=== PATIENT | female | born 1955 | race Caucasian/White ===

== ENCOUNTER → 2016-09-05 | Outpatient (CLI) | payer BC ==
[2016-09-05 16:43] LABS: CHLORIDE,CL 110 mmol/L (98-110); SODIUM,NA 142 mmol/L (136-146)
== END ==
LOC: MW.CHFP 15:36
PROVIDERS: ATTEND Nurse Practitioner Family
DX: Z00.00 Encounter for general adult medical examination without abnormal findings (principal); E03.9 Hypothyroidism, unspecified
CPT/HCPCS: 36415; 80053; 80061; 84443

== ENCOUNTER → 2016-09-06 | Outpatient (CLI) | payer BC ==
--- NOTE | 2016-09-06 16:58 | MY ---
EXAMINATION: Bilateral digital mammography utilizing CAD. HISTORY: Screening exam. Comparison is made to previous studies dated 08/18/2015, 08/17/2014, 07/30/19 14, 07/23/2012. FINDINGS: Bilateral heterogeneously dense breast tissue. No suspicious calcifications, masses or architectural distortions. No pathologic appearing lymph nodes, no abnormal skin thickening or nipple inversion. CAD highlighted regions appear normal at this time. IMPRESSION: BI-RADS category I - negative mammogram. Continued screening according to ACR-ACS guidelines britany soares. THE FALSE-NEGATIVE RATE OF MAMMOGRAM IS APPROXIMATELY 10%. MANAGEMENT OF A PALPABLE ABNORMALITY MUST BE BASED UPON CLINICAL GROUNDS. SENSITIVITY FOR DETECTION OF ABNORMALITIES IN DENSE BREASTS IS LOW. NOTE: A letter will be sent to the patient regarding findings. [facility] -- KRISTY Wagner [phone] - FAX [phone]
== END ==
LOC: MW.MAM 13:45
PROVIDERS: ATTEND Nurse Practitioner Family
DX: Z12.31 Encounter for screening mammogram for malignant neoplasm of breast (principal)
CPT/HCPCS: G0202; G0202-26

== ENCOUNTER 2017-05-12 07:04 | Emergency (ER) | payer BC ==
--- NOTE | 2017-05-12 07:27 | EDM.PDOC ---
ED HPI GENERAL MEDICAL PROBLEM - General Chief Complaint: Lower Extremity Injury/Pain Stated Complaint: RIGHT FOOT PAIN Time Seen by Provider: 05/12/17 07:26 Source of Information: Reports: Patient - History of Present Illness INITIAL COMMENTS - FREE TEXT/NARRATIVE: HISTORY AND PHYSICAL: History of present illness: [Patient presents with 6 out of 10 worst foot pain on the right which began insidiously increasing in severity denies injury or trauma painful even with the bed sheet over the foot clinically SEEMS similar to get out of her uric acid is normal there is a mild swelling over the dorsum of her foot but no redness No fever nausea vomiting chills sweats no history of gout or prior joint involvement ] Review of systems: As per history of present illness and below otherwise all systems reviewed and negative. Past medical history: As per history of present illness and as reviewed below otherwise noncontributory. Surgical history: As per history of present illness and as reviewed below otherwise noncontributory. Social history: No reported history of drug or alcohol abuse. Family history: As per history of present illness and as reviewed below otherwise noncontributory. Physical exam: HEENT: Atraumatic, normocephalic, pupils reactive, negative for conjunctival pallor or scleral icterus, mucous membranes moist, throat clear, neck supple, nontender, trachea midline. Lungs: Clear to auscultation, breath sounds equal bilaterally, chest nontender. Heart: S1S2, regular, negative for clicks, rubs, or JVD. Abdomen: Soft, nondistended, nontender. Negative for masses or hepatosplenomegaly. Negative for costovertebral tenderness. Pelvis: Stable nontender. Genitourinary: Deferred. Rectal: Deferred. Extremities: Atraumatic, negative for cords or calf pain. Neurovascular unremarkable. Neuro: Awake, alert, oriented. Cranial nerves II through XII unremarkable. Cerebellum unremarkable. Motor and sensory unremarkable throughout. Exam nonfocal. Right foot unaffected above the ankle otherwise as per history of present illness and neurovascularly intact no open lesion or bruising Diagnostics: []Right foot 3 views CBC uric acid Therapeutics: []Indomethacin 50 mg by mouth 3 times a day #30 no refill Cam boot crutches nonweightbearing Follow-up with podiatry Impression: right oot pain The question a nondisplaced fracture at the proximal metatarsal of the third metatarsal, radiology has read the film was normal which is very subtle may as well be normal but I would clinically correlate to see this only on the oblique view. This patient may cam boot crutches well her follow-up with podiatry for repeat exam and consideration of CT/MRI to rule out occult fracture ending their evaluation Definitive disposition and diagnosis as appropriate pending reevaluation and review of above. right foot Pain Score (Numeric/FACES): 7 - Related Data Allergies Allergy/AdvReac Type Severity Reaction Status Date / Time aspirin Allergy Cannot Verified 05/12/17 07:21 Remember cephalexin [From Keflex] Allergy Cannot Verified 05/12/17 07:21 Remember ciprofloxacin [From Cipro] Allergy Cannot Verified 05/12/17 07:21 Remember clarithromycin [From Biaxin] Allergy Cannot Verified 05/12/17 07:21 Remember ibuprofen [From Motrin] Allergy Cannot Verified 05/12/17 07:21 Remember naproxen [From Naprosyn] Allergy Cannot Verified 05/12/17 07:21 Remember nitrofurantoin Allergy Cannot Verified 05/12/17 07:21 [From Macrobid] Remember Home Meds: Home Meds Levothyroxine [Synthroid] 1 tab PO DAILY 05/12/17 [History] Past Medical History Musculoskeletal History: Reports: Osteoarthritis - Past Surgical History Musculoskeletal Surgical History: Reports: Other (See Below) Review of Systems - Review of Systems Review Of Systems: ROS reveals no pertinent complaints other than HPI. ED EXAM, GENERAL - Physical Exam Exam: See Below Course - Vital Signs Last Recorded V/S: Last Vital Signs Temp 97.0 F 05/12/17 07:22 Pulse 73 05/12/17 07:22 Resp 18 05/12/17 07:22 BP 190/87 H 05/12/17 07:22 Pulse Ox 99 05/12/17 07:22 - Orders/Labs/Meds Orders: Active Orders 24 hr Category Date Time Status Foot Comp Min 3V Rt [CR] Stat Exams 05/12/17 07:26 Taken Labs: Laboratory Tests 05/12/17 05/12/17 Range/Units 07:35 07:35 WBC 9.49 (4.0-11.0) K/uL RBC 4.33 (4.30-5.90) M/uL Hgb 13.2 (12.0-16.0) g/dL Hct 38.2 (36.0-46.0) % MCV 88.2 (80.0-98.0) fL MCH 30.5 (27.0-32.0) pg MCHC 34.6 (31.0-37.0) g/dL RDW Std Deviation 44.8 (28.0-62.0) fl RDW Coeff of Jerrell 14 (11.0-15.0) % Plt Count 213 (150-400) K/uL MPV 11.30 (7.40-12.00) fL Neut % (Auto) 34.5 L (48.0-80.0) % Lymph % (Auto) 47.4 H (16.0-40.0) % [place] % (Auto) 9.5 (0.0-15.0) % Eos % (Auto) 8.0 H (0.0-7.0) % Baso % (Auto) 0.6 (0.0-1.5) % Neut # (Auto) 3.3 (1.4-5.7) K/uL Lymph # (Auto) 4.5 H (0.6-2.4) K/uL [place] # (Auto) 0.9 H (0.0-0.8) K/uL Eos # (Auto) 0.8 H (0.0-0.7) K/uL Baso # (Auto) 0.1 (0.0-0.1) K/uL Nucleated RBC % 0.0 /100WBC Nucleated RBCs # 0 K/uL Uric Acid 4.1 (2.1-6.2) mg/dL Departure - Departure Time of Disposition: 08:45 Disposition: Home, Self-Care 01 Condition: Good Clinical Impression: Right foot pain - Discharge Information Referrals: Barbara Sun NP [Primary Care Provider] - Forms: ED Department Discharge Additional Instructions: Medication as prescribed Return if symptoms persist or worsen Follow-up with podiatry early next week called lumbar below for appointment Continue CAM boot crutches and nonweightbearing ice 20 minute intervals 3 times daily as needed No need for ibuprofen or Tylenol with the prescription medication [facility] Primary [facility] - Podiatry [address] [place] [id number] The following information is given to patients seen in the emergency department who are being discharged to home. This information is to outline your options for follow-up care. We provide all patients seen in our emergency department with a follow-up referral. The need for follow-up, as well as the timing and circumstances, are variable depending upon the specifics of your emergency department visit. If you don't have a primary care physician on staff, we will provide you with a referral. We always advise you to contact your personal physician following an emergency department visit to inform them of the circumstance of the visit and for follow-up with them and/or the need for any referrals to a consulting specialist. The emergency department will also refer you to a specialist when appropriate. This referral assures that you have the opportunity for follow-up care with a specialist. All of these measure are taken in an effort to provide you with optimal care, which includes your follow-up. Under all circumstances we always encourage you to contact your private physician who remains a resource for coordinating your care. When calling for follow-up care, please make the office aware that this follow-up is from your recent emergency room visit. If for any reason you are refused follow-up, please contact the [facility] emergency department at and asked to speak to the emergency department charge nurse. - My Orders Last 24 Hours: My Active Orders 05/12/17 07:26 Foot Comp Min 3V Rt [CR] Stat - Assessment/Plan Last 24 Hours: My Active Orders 05/12/17 07:26 Foot Comp Min 3V Rt [CR] Stat
--- NOTE | 2017-05-14 13:48 | CR ---
EXAM DATE: 05/12/17 PATIENT'S AGE: 61 Patient: KAMRYN SANABRIA Facility: [place], [place] Site . Site : 1955 Study: XRay Extremity Right foot [id number]/16/2017 7:43:33 AM Ordering Physician: Dong Escobar Final Report: Indication: Right foot pain. Technique: Three views of the right foot. Comparison: 01/23/2011. Findings: No fracture, periosteal reaction or erosive change. Mild hallux valgus deformity and 1st MTP joint osteoarthritis. Small posterior calcaneal spur and tiny plantar calcaneal spur. Impression: 1. No acute abnormality. 2. Mild hallux valgus deformity and 1st MTP joint osteoarthritis. 3. Small calcaneal spurs. Dictated by Yaya Vickers MD @ May 12 2017 8:26AM (Electronic Signature) Report Signed by Proxy. GHISLAINE
== END 2017-05-12 09:13 | disposition home or self-care (01) ==
LOC: MW.ED 07:04
DX: M79.671 Pain in right foot (principal); Z88.6 Allergy status to analgesic agent; Z88.1 Allergy status to other antibiotic agents; Z88.8 Allergy status to other drugs, medicaments and biological substances; Z79.899 Other long term (current) drug therapy
CPT/HCPCS: 36415; 73630-26-RT; 73630-RT; 84550; 85025; 99283

== ENCOUNTER 2020-08-15 15:56 | Emergency (ER) | payer MEDICARE, OTHER ==
[2020-08-15] MEDS ORDERED: Morphine 4 MG/ML Syringe IVPUSH ONE (16:26)
[2020-08-15] MEDS ORDERED: Sodium Chloride 0.9% 1,000 ML IV ONE (16:26)
--- NOTE | 2020-08-15 16:50 | EDM.PDOC ---
ED HPI GENERAL MEDICAL PROBLEM - General Chief Complaint: Abdominal Pain Stated Complaint: ABDMINAL PAIN Time Seen by Provider: 08/15/20 16:02 Source of Information: Reports: Patient History Limitations: Reports: No Limitations - History of Present Illness INITIAL COMMENTS - FREE TEXT/NARRATIVE: Is a 65-year-old female who presents today for diffuse abdominal pain. Patient states she has some type of steven chips and since then she did have abdominal cramps. Patient states she has not a bowel movement in 2 days but doubly she is passing gas. Patient denies any nausea vomiting but does have decreased p.o. intake. Patient denies any fever chills. Patient reports she also has history of recurrent SBO's concern about that today. abdominal Pain Score (Numeric/FACES): 10 - Related Data Allergies Allergy/AdvReac Type Severity Reaction Status Date / Time aspirin Allergy Cannot Verified 08/15/20 16:23 Remember cephalexin [From Keflex] Allergy Cannot Verified 08/15/20 16:23 Remember ciprofloxacin [From Cipro] Allergy Cannot Verified 08/15/20 16:23 Remember clarithromycin [From Biaxin] Allergy Cannot Verified 08/15/20 16:23 Remember ibuprofen [From Motrin] Allergy Cannot Verified 08/15/20 16:23 Remember naproxen [From Naprosyn] Allergy Cannot Verified 08/15/20 16:23 Remember nitrofurantoin Allergy Cannot Verified 08/15/20 16:23 [From Macrobid] Remember Home Meds: Home Meds Levothyroxine [Synthroid] 0.1 mg PO DAILY 05/12/17 [History] Dexlansoprazole [Dexilant] 30 mg PO DAILY 08/15/20 [History] Past Medical History Musculoskeletal History: Reports: Osteoarthritis Endocrine/Metabolic History: Reports: Hypothyroidism - Infectious Disease History Infectious Disease History: Reports: Chicken Pox, Measles, Mumps - Past Surgical History GI Surgical History: Reports: Appendectomy, Cholecystectomy, Other (See Below) Other GI Surgeries/Procedures: bowel resection Female Surgical History: Reports: Hysterectomy Musculoskeletal Surgical History: Reports: Other (See Below) Other Musculoskeletal Surgeries/Procedures:: LEFT [facility]MC JOINT ARTHROPLASTY. Social & Family History - Family History Family Medical History: No Pertinent Family History - Caffeine Use Caffeine Use: Reports: None - Recreational Drug Use Recreational Drug Use: No ED ROS GENERAL - Review of Systems Review Of Systems: See Below Constitutional: Reports: No Symptoms HEENT: Reports: No Symptoms Respiratory: Reports: No Symptoms Cardiovascular: Reports: No Symptoms Endocrine: Reports: No Symptoms GI/Abdominal: Reports: Abdominal Pain : Reports: No Symptoms Musculoskeletal: Reports: No Symptoms Skin: Reports: No Symptoms Neurological: Reports: No Symptoms Psychiatric: Reports: No Symptoms Hematologic/Lymphatic: Reports: No Symptoms Immunologic: Reports: No Symptoms ED EXAM, GI/ABD - Physical Exam Exam: See Below Exam Limited By: No Limitations General Appearance: Alert, WD/WN Respiratory/Chest: No Respiratory Distress, Lungs Clear, Normal Breath Sounds Cardiovascular: Normal Peripheral Pulses, Regular Rate, Rhythm, No Edema GI/Abdominal Exam: Normal Bowel Sounds, Soft, Non-Tender Neurological: Alert, Oriented, CN II-XII Intact, Normal Cognition, Normal Gait Course - Vital Signs Last Recorded V/S: Last Vital Signs Temp 97.6 F 08/15/20 16:20 Pulse 58 L 08/15/20 16:25 Resp 18 08/15/20 16:25 BP 150/70 H 08/15/20 16:25 Pulse Ox 100 08/15/20 16:25 - Orders/Labs/Meds Orders: Active Orders 24 hr Category Date Time Status Abdomen Pelvis w Cont [CT] Stat Exams 08/15/20 16:27 Taken Labs: Laboratory Tests 08/15/20 08/15/20 08/15/20 Range/Units 16:06 16:35 16:35 WBC (4.0-11.0) K/uL RBC (4.30-5.90) M/uL Hgb (12.0-16.0) g/dL Hct (36.0-46.0) % MCV (80.0-98.0) fL MCH (27.0-32.0) pg MCHC (31.0-37.0) g/dL RDW Std Deviation (28.0-62.0) fl RDW Coeff of Jerrell (11.0-15.0) % Plt Count (150-400) K/uL MPV (7.40-12.00) fL Neut % (Auto) (48.0-80.0) % Lymph % (Auto) (16.0-40.0) % [place]hea % (Auto) (0.0-15.0) % Eos % (Auto) (0.0-7.0) % Baso % (Auto) (0.0-1.5) % Neut # (Auto) (1.4-5.7) K/uL Lymph # (Auto) (0.6-2.4) K/uL Rhea # (Auto) (0.0-0.8) K/uL Eos # (Auto) (0.0-0.7) K/uL Baso # (Auto) (0.0-0.1) K/uL Nucleated RBC % /100WBC Nucleated RBCs # K/uL Lactate 1.8 (0.20-2.00) mmol/L Sodium 139 (136-145) mmol/L Potassium 3.5 (3.5-5.1) mmol/L Chloride 103 (98-107) mmol/L Carbon Dioxide 23.1 (21.0-32.0) mmol/L BUN 13 (7.0-18.0) mg/dL Creatinine 0.9 (0.6-1.0) mg/dL Est Cr Clr Drug Dosing 58.99 mL/min Estimated GFR (MDRD) > 60.0 ml/min Glucose 130 H (74-106) mg/dL Calcium 9.2 (8.5-10.1) mg/dL Phosphorus 3.1 (2.6-4.7) mg/dL Magnesium 1.8 (1.8-2.4) mg/dL Total Bilirubin 0.4 (0.2-1.0) mg/dL AST 17 (15-37) IU/L ALT 24 (14-63) IU/L Alkaline Phosphatase 92 (46-116) U/L Creatine Kinase 90 (26-308) U/L Total Protein 6.9 (6.4-8.2) g/dL Albumin 3.8 (3.4-5.0) g/dL Globulin 3.1 (2.6-4.0) g/dL Albumin/Globulin Ratio 1.2 (0.9-1.6) Urine Color YELLOW Urine Appearance SLT CLOUDY Urine pH 7.5 (5.0-8.0) Ur Specific [place] 1.020 (1.001-1.035) Urine Protein NEGATIVE (NEGATIVE) mg/dL Urine Glucose (UA) NEGATIVE (NEGATIVE) mg/dL Urine Ketones NEGATIVE (NEGATIVE) mg/dL Urine Occult Blood NEGATIVE (NEGATIVE) Urine Nitrite POSITIVE H (NEGATIVE) Urine Bilirubin NEGATIVE (NEGATIVE) Urine Urobilinogen 0.2 (<2.0) EU/dL Ur Leukocyte Esterase NEGATIVE (NEGATIVE) Urine RBC 0-2 (0-2/HPF) Urine WBC 18-20 (0-5/HPF) Ur Epithelial Cells RARE (NONE-FEW) Urine Bacteria 2+ H (NEGATIVE) 08/15/20 Range/Units 16:40 WBC 11.32 H (4.0-11.0) K/uL RBC 4.34 (4.30-5.90) M/uL Hgb 13.1 (12.0-16.0) g/dL Hct 38.6 (36.0-46.0) % MCV 88.9 (80.0-98.0) fL MCH 30.2 (27.0-32.0) pg MCHC 33.9 (31.0-37.0) g/dL RDW Std Deviation 43.0 (28.0-62.0) fl RDW Coeff of Jerrell 13 (11.0-15.0) % Plt Count 282 (150-400) K/uL MPV 11.70 (7.40-12.00) fL Neut % (Auto) 71.8 (48.0-80.0) % Lymph % (Auto) 21.1 (16.0-40.0) % Rhea % (Auto) 5.0 (0.0-15.0) % Eos % (Auto) 1.8 (0.0-7.0) % Baso % (Auto) 0.3 (0.0-1.5) % Neut # (Auto) 8.1 H (1.4-5.7) K/uL Lymph # (Auto) 2.4 (0.6-2.4) K/uL Rhea # (Auto) 0.6 (0.0-0.8) K/uL Eos # (Auto) 0.2 (0.0-0.7) K/uL Baso # (Auto) 0.0 (0.0-0.1) K/uL Nucleated RBC % 0.0 /100WBC Nucleated RBCs # 0 K/uL Lactate (0.20-2.00) mmol/L Sodium (136-145) mmol/L Potassium (3.5-5.1) mmol/L Chloride (98-107) mmol/L Carbon Dioxide (21.0-32.0) mmol/L BUN (7.0-18.0) mg/dL Creatinine (0.6-1.0) mg/dL Est Cr Clr Drug Dosing mL/min Estimated GFR (MDRD) ml/min Glucose (74-106) mg/dL Calcium (8.5-10.1) mg/dL Phosphorus (2.6-4.7) mg/dL Magnesium (1.8-2.4) mg/dL Total Bilirubin (0.2-1.0) mg/dL AST (15-37) IU/L ALT (14-63) IU/L Alkaline Phosphatase (46-116) U/L Creatine Kinase (26-308) U/L Total Protein (6.4-8.2) g/dL Albumin (3.4-5.0) g/dL Globulin (2.6-4.0) g/dL Albumin/Globulin Ratio (0.9-1.6) Urine Color Urine Appearance Urine pH (5.0-8.0) Ur Specific [place] (1.001-1.035) Urine Protein (NEGATIVE) mg/dL Urine Glucose (UA) (NEGATIVE) mg/dL Urine Ketones (NEGATIVE) mg/dL Urine Occult Blood (NEGATIVE) Urine Nitrite (NEGATIVE) Urine Bilirubin (NEGATIVE) Urine Urobilinogen (<2.0) EU/dL Ur Leukocyte Esterase (NEGATIVE) Urine RBC (0-2/HPF) Urine WBC (0-5/HPF) Ur Epithelial Cells (NONE-FEW) Urine Bacteria (NEGATIVE) Meds: Medications Discontinued Medications Generic Name Dose Route Start Last Admin Trade Name Freq PRN Reason Stop Dose Admin Sodium Chloride 1,000 mls @ 999 mls/hr 08/15/20 16:26 08/15/20 16:43 Normal Saline IV 08/15/20 17:26 999 mls/hr .BOLUS ONE Administration Iopamidol 100 ml 08/16/20 06:07 08/16/20 06:09 Iopamidol 755 Mg/Ml 500 Ml Multipack Bottle IVPUSH 08/16/20 06:08 Not Given ONETIME STA Iopamidol 80 ml 08/16/20 06:08 08/16/20 06:09 Iopamidol 755 Mg/Ml 500 Ml Multipack Bottle IVPUSH 08/16/20 06:09 80 ml ONETIME STA Administration Morphine Sulfate 4 mg 08/15/20 16:26 08/15/20 16:49 Morphine 4 Mg/Ml Syringe IVPUSH 08/15/20 16:27 4 mg ONETIME ONE Administration Morphine Sulfate Confirm 08/15/20 20:20 Morphine 4 Mg/Ml Syringe Administered 08/15/20 20:21 Dose 4 mg .ROUTE .[facility] - Re-Assessments/Exams Free Text/Narrative Re-Assessment/Exam: 08/16/20 07:13 CT is still pending. We have in downtime and still awaiting labs. Patient seems to be comfortable. Will sign patient out to oncoming attending pending CT scan. Departure - Departure Time of Disposition: 19:00 Disposition: Still A Patient 30 Condition: Good Clinical Impression: Abdominal pain - Discharge Information *PRESCRIPTION DRUG MONITORING PROGRAM REVIEWED*: Not Applicable *COPY OF PRESCRIPTION DRUG MONITORING REPORT IN PATIENT ROCKY: Not Applicable Referrals: Tonya Rascon NP [Primary Care Provider] - Forms: ED Department Discharge Sepsis Event Note (ED) - Evaluation Sepsis Screening Result: No Definite Risk - My Orders Last 24 Hours: My Active Orders 08/15/20 16:27 Abdomen Pelvis w Cont [CT] Stat - Assessment/Plan Last 24 Hours: My Active Orders 08/15/20 16:27 Abdomen Pelvis w Cont [CT] Stat Plan: Patient is a 65-year-old female presents today for abdominal pain. Patient has history of SBO's. Will obtain CT labs reassess.
[2020-08-15 17:11] LABS: BLOOD UREA NITROGEN,BUN 13 mg/dL (7.0-18.0); CARBON DIOXIDE,CO2 23.1 mmol/L (21.0-32.0); CHLORIDE,CL 103 mmol/L (98-107); GLUCOSE RANDOM 130 mg/dL (74-106); POTASSIUM,K 3.5 mmol/L (3.5-5.1); SODIUM,NA 139 mmol/L (136-145)
[2020-08-15] MEDS ORDERED: Morphine 4 MG/ML Syringe ONE (20:20)
[2020-08-16] MEDS ORDERED: Iopamidol 755 MG/ML 500 ML Multipack Bottle IVPUSH STA ×2 (06:07→06:08)
--- NOTE | 2020-08-16 08:04 | CT ---
INDICATION: Diffuse abdominal pain. History of small-bowel obstruction. TECHNIQUE: CT abdomen and pelvis acquired with 80 cc Isovue 370 IV contrast. COMPARISON: None. FINDINGS: Lower chest: Unremarkable. Liver: Unremarkable. Normal in size and attenuation. No masses. Gallbladder and bile ducts: Status post cholecystectomy with moderate secondary biliary dilatation. Pancreas: Unremarkable. No mass or inflammation. Spleen: Unremarkable. Normal in size. No masses. Adrenal glands: Unremarkable. No nodules. Kidneys: Few small benign-appearing left renal cyst. Otherwise unremarkable kidneys. GI tract: There are dilated small bowel loops in the left upper quadrant measuring up to 4 cm in diameter. This could represent a closed loop obstruction. Remainder of the GI tract is within normal limits in caliber and appearance. Normal appendix. Vasculature: Unremarkable. Mesenteric arteries are patent. Lymph nodes: No lymphadenopathy. Omentum/Peritoneum/Abdominal Wall: Unremarkable. No sign of mass or infiltration. No free air or significant free fluid. Pelvis: Unremarkable. Bones: Unremarkable for age. IMPRESSION: Small-bowel obstruction with dilated small bowel loops in the left upper quadrant in a pattern that could represent a closed loop obstruction. Surgical consultation is recommended for management of this finding. No other acute or significant findings. Please note that all CT scans at this facility use dose modulation, iterative reconstruction, and/or weight-based dosing when appropriate to reduce radiation dose to as low as reasonably achievable. Dictated by Saad Griffiths MD @ Aug 16 2020 7:55AM Signed by Dr. Saad Griffiths @ Aug 16 2020 8:03AM
== END 2020-08-15 21:20 | disposition home or self-care (01) ==
LOC: MW.ED 15:56
DX: N39.0 Urinary tract infection, site not specified (principal); E03.9 Hypothyroidism, unspecified; Z88.6 Allergy status to analgesic agent; Z88.1 Allergy status to other antibiotic agents; Z88.8 Allergy status to other drugs, medicaments and biological substances; Z79.899 Other long term (current) drug therapy
CPT/HCPCS: 36415; 74177; 80053; 81001; 82550; 83605; 83735; 84100; 85025; 96374; 99284; J2270; J7030; 99283

== ENCOUNTER 2020-08-16 09:12 | Inpatient (IN) | payer MEDICARE, OTHER ==
[2020-08-16] MEDS ORDERED: Sodium Chloride 0.9% 1,000 ML IV ONE (09:55)
[2020-08-16] MEDS ORDERED: Midazolam 1 MG/ML 2 ML SDV IVPUSH ONE (10:08)
--- NOTE | 2020-08-16 10:09 | EDM.PDOC ---
ED HPI GENERAL MEDICAL PROBLEM - General Chief Complaint: Gastrointestinal Problem Stated Complaint: abdominal Time Seen by Provider: 08/16/20 09:14 Source of Information: Reports: Patient History Limitations: Reports: No Limitations - History of Present Illness INITIAL COMMENTS - FREE TEXT/NARRATIVE: Is a 65-year-old female who was seen here yesterday for abdominal pain. Patient had a CAT scan yesterday but due to the system being down the CT scan cannot be read. Patient was feeling well passing gas and she elected herself to go home. The CAT scan results came back this morning shows patient has a small bowel obstruction. We spoke to the patient today she states that she is not longer having passing gas and she tried to drink something but had too much pain. Patient denies any fever chills or increased pain. We spoke to general surgery and medicine and patient will be admitted to have NG tube placed. Abdominal Pain Score (Numeric/FACES): 4 - Related Data Allergies Allergy/AdvReac Type Severity Reaction Status Date / Time aspirin Allergy Cannot Verified 08/16/20 09:24 Remember cephalexin [From Keflex] Allergy Cannot Verified 08/16/20 09:24 Remember ciprofloxacin [From Cipro] Allergy Cannot Verified 08/16/20 09:24 Remember clarithromycin [From Biaxin] Allergy Cannot Verified 08/16/20 09:24 Remember ibuprofen [From Motrin] Allergy Cannot Verified 08/16/20 09:24 Remember naproxen [From Naprosyn] Allergy Cannot Verified 08/16/20 09:24 Remember nitrofurantoin Allergy Cannot Verified 08/16/20 09:24 [From Macrobid] Remember Home Meds: Home Meds Levothyroxine [Synthroid] 0.1 mg PO DAILY 05/12/17 [History] Dexlansoprazole [Dexilant] 30 mg PO DAILY 08/15/20 [History] Past Medical History Musculoskeletal History: Reports: Osteoarthritis Endocrine/Metabolic History: Reports: Hypothyroidism - Infectious Disease History Infectious Disease History: Reports: Chicken Pox, Measles, Mumps - Past Surgical History GI Surgical History: Reports: Appendectomy, Cholecystectomy, Other (See Below) Other GI Surgeries/Procedures: bowel resection Female Surgical History: Reports: Hysterectomy Musculoskeletal Surgical History: Reports: Other (See Below) Other Musculoskeletal Surgeries/Procedures:: LEFT CMC JOINT ARTHROPLASTY. Social & Family History - Family History Family Medical History: No Pertinent Family History - Caffeine Use Caffeine Use: Reports: None - Recreational Drug Use Recreational Drug Use: No ED ROS GENERAL - Review of Systems Review Of Systems: See Below Constitutional: Reports: No Symptoms HEENT: Reports: No Symptoms Respiratory: Reports: No Symptoms Cardiovascular: Reports: No Symptoms Endocrine: Reports: No Symptoms GI/Abdominal: Reports: Abdominal Pain : Reports: No Symptoms Musculoskeletal: Reports: No Symptoms Skin: Reports: No Symptoms Neurological: Reports: No Symptoms Psychiatric: Reports: No Symptoms Hematologic/Lymphatic: Reports: No Symptoms Immunologic: Reports: No Symptoms ED EXAM, GI/ABD - Physical Exam Exam: See Below Exam Limited By: No Limitations General Appearance: Alert, WD/WN Eyes: Bilateral: EOMI Head: Atraumatic Respiratory/Chest: No Respiratory Distress, Lungs Clear, Normal Breath Sounds Cardiovascular: Normal Peripheral Pulses, Regular Rate, Rhythm GI/Abdominal Exam: Soft, Tender Extremities: Normal Inspection Neurological: Alert, Oriented, Normal Cognition, Normal Gait Course - Vital Signs Last Recorded V/S: Last Vital Signs Temp 97.6 F 08/16/20 09:24 Pulse 99 08/16/20 09:24 Resp 16 08/16/20 09:24 BP 128/81 08/16/20 09:24 Pulse Ox 97 08/16/20 09:24 - Orders/Labs/Meds Orders: Active Orders 24 hr Category Date Time Status Patient Status [ADT] Routine ADT 08/16/20 10:05 Ordered NG Tube Placement [CR] Stat Exams 08/16/20 09:56 Ordered COMPREHENSIVE METABOLIC PN,CMP [CHEM] Stat Lab 08/16/20 09:56 Ordered COVID-19/FLU A+B [MOLEC] Stat Lab 08/16/20 09:57 Ordered CREATINE KINASE,CK [CHEM] Stat Lab 08/16/20 09:56 Ordered INR,PT,PROTHROMBIN TIME [COAG] Stat Lab 08/16/20 09:56 Ordered LIPASE [CHEM] Stat Lab 08/16/20 09:56 Ordered MAGNESIUM [CHEM] Stat Lab 08/16/20 09:56 Ordered PTT,PARTIAL THROMBOPLSTIN TIME [COAG] Stat Lab 08/16/20 09:56 Ordered Sodium Chloride 0.9% @ Wide Open @ Dosing Amount 20 ML/ Med 08/16/20 09:55 Ordered KG (1,000ml) Sodium Chloride 0.9% [Normal Saline] 1,000 ml IV .BOLUS Medication Orders Sodium Chloride (Normal Saline) 1,000 mls @ 999 mls/hr IV .BOLUS ONE Stop: 08/16/20 10:55 Last Admin: 08/16/20 10:00 Dose: 999 mls/hr Documented by: CHANCE Labs: Laboratory Tests 08/16/20 08/16/20 Range/Units 09:40 09:40 WBC 14.41 H (4.0-11.0) K/uL RBC 5.01 (4.30-5.90) M/uL Hgb 15.4 (12.0-16.0) g/dL Hct 44.3 (36.0-46.0) % MCV 88.4 (80.0-98.0) fL MCH 30.7 (27.0-32.0) pg MCHC 34.8 (31.0-37.0) g/dL RDW Std Deviation 42.5 (28.0-62.0) fl RDW Coeff of Jerrell 13 (11.0-15.0) % Plt Count 338 (150-400) K/uL MPV 12.20 H (7.40-12.00) fL Neut % (Auto) 82.9 H (48.0-80.0) % Lymph % (Auto) 12.3 L (16.0-40.0) % Burnett % (Auto) 3.9 (0.0-15.0) % Eos % (Auto) 0.6 (0.0-7.0) % Baso % (Auto) 0.3 (0.0-1.5) % Neut # (Auto) 12.0 H (1.4-5.7) K/uL Lymph # (Auto) 1.8 (0.6-2.4) K/uL Burnett # (Auto) 0.6 (0.0-0.8) K/uL Eos # (Auto) 0.1 (0.0-0.7) K/uL Baso # (Auto) 0.0 (0.0-0.1) K/uL Nucleated RBC % 0.0 /100WBC Nucleated RBCs # 0 K/uL Lactate 1.6 (0.20-2.00) mmol/L Meds: Medications Generic Name Dose Route Start Last Admin Trade Name Freq PRN Reason Stop Dose Admin Sodium Chloride 1,000 mls @ 999 mls/hr 08/16/20 09:55 08/16/20 10:00 Normal Saline IV 08/16/20 10:55 999 mls/hr .BOLUS ONE Administration Departure - Departure Time of Disposition: 10:09 Disposition: Admitted As Inpatient 64 Condition: Good Clinical Impression: SBO (small bowel obstruction) - Discharge Information Referrals: PCP,None [Primary Care Provider] - Sepsis Event Note (ED) - Evaluation Sepsis Screening Result: No Definite Risk - Focused Exam Vital Signs: Vital Signs Temp Pulse Resp BP Pulse Ox 08/16/20 09:24 97.6 F 99 16 128/81 97 - My Orders Last 24 Hours: My Active Orders 08/16/20 09:55 Sodium Chloride 0.9% @ Wide Open @ Dosing Amount 20 ML/KG (1,000ml) Sodium Chloride 0.9% [Normal Saline] 1,000 ml IV .BOLUS 08/16/20 09:56 NG Tube Placement [CR] Stat COMPREHENSIVE METABOLIC PN,CMP [CHEM] Stat CREATINE KINASE,CK [CHEM] Stat INR,PT,PROTHROMBIN TIME [COAG] Stat LIPASE [CHEM] Stat MAGNESIUM [CHEM] Stat PTT,PARTIAL THROMBOPLSTIN TIME [COAG] Stat 08/16/20 09:57 COVID-19/FLU A+B [MOLEC] Stat 08/16/20 10:05 Patient Status [ADT] Routine - Assessment/Plan Last 24 Hours: My Active Orders 08/16/20 09:55 Sodium Chloride 0.9% @ Wide Open @ Dosing Amount 20 ML/KG (1,000ml) Sodium Chloride 0.9% [Normal Saline] 1,000 ml IV .BOLUS 08/16/20 09:56 NG Tube Placement [CR] Stat COMPREHENSIVE METABOLIC PN,CMP [CHEM] Stat CREATINE KINASE,CK [CHEM] Stat INR,PT,PROTHROMBIN TIME [COAG] Stat LIPASE [CHEM] Stat MAGNESIUM [CHEM] Stat PTT,PARTIAL THROMBOPLSTIN TIME [COAG] Stat 08/16/20 09:57 COVID-19/FLU A+B [MOLEC] Stat 08/16/20 10:05 Patient Status [ADT] Routine Plan: Is a 65-year-old female who presents today for abdominal pain. Patient has a SBO from the CAT scan that she had yesterday. Patient is not passing gas as she was yesterday with for discharge. We spoke to general surgery medicine will admit patient to medicine for further care and place NG tube in ED.
[2020-08-16 10:16] LABS: BLOOD UREA NITROGEN,BUN 12 mg/dL (7.0-18.0); CARBON DIOXIDE,CO2 23.8 mmol/L (21.0-32.0); CHLORIDE,CL 98 mmol/L (98-107); GLUCOSE RANDOM 155 mg/dL (74-106); LIPASE 97 U/L (73-393); POTASSIUM,K 3.8 mmol/L (3.5-5.1); SODIUM,NA 136 mmol/L (136-145)
[2020-08-16] MEDS ORDERED: Morphine 4 MG/ML Syringe IVPUSH ONE (10:33)
[2020-08-16 11:10] LABS: CORONAVIRUS COVID-19 NAA NEGATIVE (NEGATIVE); INFLUENZA A NAA NEGATIVE (NEGATIVE); INFLUENZA B NAA NEGATIVE (NEGATIVE)
--- NOTE | 2020-08-16 11:42 | PCM.HP.2 ---
H&P History of Present Illness - General Date of Service: 08/16/20 Admit Problem/Dx: Admission Diagnosis/Problem Admission Diagnosis/Problem Small bowel obstruction - History of Present Illness Initial Comments - Free Text/Narative: 65-year-old female past medical history of hypothyroidism, GERD, prior SBO episodes admitted for small bowel obstruction. Patient presents to the ED with nausea, vomiting, abdominal pain. Patient states 2 days ago on Sunday evening she ate pecan chips and a few hours after she started to have symptoms. Patient states that she has had small bowel obstructions in the past but not for many many years. Patient states that certain foods trigger her symptoms. Patient's previous small bowel obstructions were handled nonsurgically with NG tube decompression and n.p.o. Patient also states that she has a small bowel resections and history of adhesions post multiple abdominal surgeries. On admission patient denies chest pain, shortness of breath, fever, chills, nausea, vomiting, abdominal pain. UA shows nitrite +2+ bacteria, but patient denies any symptoms of dysuria, he maturia, lower abdominal pain, flank pain. Patient was made aware of possible infection, patient states that she would like to wait before receiving antibiotic treatment for the infection as she states that she is not having symptoms. WBC 14.4, CT abdomen impression- Small bowel obstruction with dilated small bowel loops in the left upper quadrant. Patient admitted to the floor, NG tube placed, made n.p.o., IV normal saline started. Abdominal Pain Score (Numeric/FACES): 4 - Related Data Allergies/Adverse Reactions: Allergies Allergy/AdvReac Type Severity Reaction Status Date / Time aspirin Allergy Cannot Verified 08/16/20 12:55 Remember cephalexin [From Keflex] Allergy Cannot Verified 08/16/20 12:55 Remember ciprofloxacin [From Cipro] Allergy Cannot Verified 08/16/20 12:55 Remember clarithromycin [From Biaxin] Allergy Cannot Verified 08/16/20 12:55 Remember ibuprofen [From Motrin] Allergy Cannot Verified 08/16/20 12:55 Remember naproxen [From Naprosyn] Allergy Cannot Verified 08/16/20 12:55 Remember nitrofurantoin Allergy Cannot Verified 08/16/20 12:55 [From Macrobid] Remember Sulfa (Sulfonamide Allergy Other Verified 08/16/20 12:55 Antibiotics) Home Medications: Home Meds Levothyroxine [Synthroid] 0.1 mg PO ACBREAKFAST 05/12/17 [History] Dexlansoprazole [Dexilant] 30 mg PO ACBREAKFAST 08/15/20 [History] Past Medical History Musculoskeletal History: Reports: Osteoarthritis Endocrine/Metabolic History: Reports: Hypothyroidism - Infectious Disease History Infectious Disease History: Reports: Chicken Pox, Measles, Mumps - Past Surgical History GI Surgical History: Reports: Appendectomy, Cholecystectomy, Other (See Below) Other GI Surgeries/Procedures: bowel resection Female Surgical History: Reports: Hysterectomy Musculoskeletal Surgical History: Reports: Other (See Below) Other Musculoskeletal Surgeries/Procedures:: LEFT CMC JOINT ARTHROPLASTY. Social & Family History - Family History Family Medical History: No Pertinent Family History - Caffeine Use Caffeine Use: Reports: None - Recreational Drug Use Recreational Drug Use: No H&P Review of Systems - Review of Systems: Review Of Systems: See Below General: Denies: Fever, Chills Pulmonary: Denies: Shortness of Breath, Wheezing Cardiovascular: Denies: Chest Pain Gastrointestinal: Denies: Abdominal Pain, Nausea, Vomiting Neurological: Denies: Confusion, Dizziness Exam - Exam Exam: See Below - Vital Signs Vital Signs: Last Vital Signs Temp 97.6 F 08/16/20 09:24 Pulse 99 08/16/20 09:24 Resp 16 08/16/20 09:24 BP 128/81 08/16/20 09:24 Pulse Ox 97 08/16/20 09:24 Weight: 139 lb - Exam General: Alert, Oriented Lungs: Clear to Auscultation, Normal Respiratory Effort Cardiovascular: Regular Rate, Regular Rhythm GI/Abdominal Exam: Soft, Non-Tender Back Exam: No: CVA Tenderness (L), CVA Tenderness (R) Extremities: No Pedal Edema Neuro Extensive - Mental Status: Alert, Oriented x3 Psychiatric: Alert - Patient Data Lab Results Last 24 hrs: Laboratory Results - last 24 hr 08/16/20 08/16/20 08/16/20 Range/Units 09:40 09:40 09:40 WBC 14.41 H (4.0-11.0) K/uL RBC 5.01 (4.30-5.90) M/uL Hgb 15.4 (12.0-16.0) g/dL Hct 44.3 (36.0-46.0) % MCV 88.4 (80.0-98.0) fL MCH 30.7 (27.0-32.0) pg MCHC 34.8 (31.0-37.0) g/dL RDW Std Deviation 42.5 (28.0-62.0) fl RDW Coeff of Jerrell 13 (11.0-15.0) % Plt Count 338 (150-400) K/uL MPV 12.20 H (7.40-12.00) fL Neut % (Auto) 82.9 H (48.0-80.0) % Lymph % (Auto) 12.3 L (16.0-40.0) % Jennings % (Auto) 3.9 (0.0-15.0) % Eos % (Auto) 0.6 (0.0-7.0) % Baso % (Auto) 0.3 (0.0-1.5) % Neut # (Auto) 12.0 H (1.4-5.7) K/uL Lymph # (Auto) 1.8 (0.6-2.4) K/uL Jennings # (Auto) 0.6 (0.0-0.8) K/uL Eos # (Auto) 0.1 (0.0-0.7) K/uL Baso # (Auto) 0.0 (0.0-0.1) K/uL Nucleated RBC % 0.0 /100WBC Nucleated RBCs # 0 K/uL INR APTT (18.6-31.3) SEC Lactate 1.6 (0.20-2.00) mmol/L Sodium 136 (136-145) mmol/L Potassium 3.8 (3.5-5.1) mmol/L Chloride 98 (98-107) mmol/L Carbon Dioxide 23.8 (21.0-32.0) mmol/L BUN 12 (7.0-18.0) mg/dL Creatinine 0.9 (0.6-1.0) mg/dL Est Cr Clr Drug Dosing 58.99 mL/min Estimated GFR (MDRD) > 60.0 ml/min Glucose 155 H (74-106) mg/dL Calcium 10.0 (8.5-10.1) mg/dL Magnesium 1.8 (1.8-2.4) mg/dL Total Bilirubin 0.5 (0.2-1.0) mg/dL AST 18 (15-37) IU/L ALT 27 (14-63) IU/L Alkaline Phosphatase 110 (46-116) U/L Creatine Kinase 78 (26-308) U/L Total Protein 8.4 H (6.4-8.2) g/dL Albumin 4.3 (3.4-5.0) g/dL Globulin 4.1 H (2.6-4.0) g/dL Albumin/Globulin Ratio 1.1 (0.9-1.6) Lipase 97 (73-393) U/L Influenza Type A RNA (NEGATIVE) Influenza Type B RNA (NEGATIVE) SARS-CoV-2 RNA (BROOK) (NEGATIVE) 08/16/20 08/16/20 Range/Units 10:17 10:28 WBC (4.0-11.0) K/uL RBC (4.30-5.90) M/uL Hgb (12.0-16.0) g/dL Hct (36.0-46.0) % MCV (80.0-98.0) fL MCH (27.0-32.0) pg MCHC (31.0-37.0) g/dL RDW Std Deviation (28.0-62.0) fl RDW Coeff of Jerrell (11.0-15.0) % Plt Count (150-400) K/uL MPV (7.40-12.00) fL Neut % (Auto) (48.0-80.0) % Lymph % (Auto) (16.0-40.0) % Jennings % (Auto) (0.0-15.0) % Eos % (Auto) (0.0-7.0) % Baso % (Auto) (0.0-1.5) % Neut # (Auto) (1.4-5.7) K/uL Lymph # (Auto) (0.6-2.4) K/uL Jennings # (Auto) (0.0-0.8) K/uL Eos # (Auto) (0.0-0.7) K/uL Baso # (Auto) (0.0-0.1) K/uL Nucleated RBC % /100WBC Nucleated RBCs # K/uL INR 1.00 APTT 24.7 (18.6-31.3) SEC Lactate (0.20-2.00) mmol/L Sodium (136-145) mmol/L Potassium (3.5-5.1) mmol/L Chloride (98-107) mmol/L Carbon Dioxide (21.0-32.0) mmol/L BUN (7.0-18.0) mg/dL Creatinine (0.6-1.0) mg/dL Est Cr Clr Drug Dosing mL/min Estimated GFR (MDRD) ml/min Glucose (74-106) mg/dL Calcium (8.5-10.1) mg/dL Magnesium (1.8-2.4) mg/dL Total Bilirubin (0.2-1.0) mg/dL AST (15-37) IU/L ALT (14-63) IU/L Alkaline Phosphatase (46-116) U/L Creatine Kinase (26-308) U/L Total Protein (6.4-8.2) g/dL Albumin (3.4-5.0) g/dL Globulin (2.6-4.0) g/dL Albumin/Globulin Ratio (0.9-1.6) Lipase (73-393) U/L Influenza Type A RNA NEGATIVE (NEGATIVE) Influenza Type B RNA NEGATIVE (NEGATIVE) SARS-CoV-2 RNA (BROOK) NEGATIVE (NEGATIVE) Result Diagrams: 08/16/20 09:40 08/16/20 09:40 Sepsis Event Note - Evaluation Sepsis Screening Result: No Definite Risk - Focused Exam Vital Signs: Vital Signs Temp Pulse Resp BP Pulse Ox 08/16/20 09:24 97.6 F 99 16 128/81 97 - Problem List (1) Hypothyroidism SNOMED Code(s): 68036044 ICD Code: E03.9 - HYPOTHYROIDISM, UNSPECIFIED Status: Acute Current Visit: Yes (2) Abdominal pain SNOMED Code(s): 93998853 ICD Code: R10.9 - UNSPECIFIED ABDOMINAL PAIN Status: Acute Current Visit: No (3) SBO (small bowel obstruction) SNOMED Code(s): 858920457 ICD Code: K56.609 - UNSP INTESTNL OBST, UNSP TO PARTIAL VERSUS COMPLETE OBST Status: Acute Current Visit: Yes (4) GERD (gastroesophageal reflux disease) SNOMED Code(s): 047703967 ICD Code: K21.9 - GASTRO-ESOPHAGEAL REFLUX DISEASE WITHOUT ESOPHAGITIS Status: Acute Current Visit: Yes (5) Asymptomatic bacteriuria SNOMED Code(s): 080437725 ICD Code: R82.71 - BACTERIURIA Status: Acute Current Visit: Yes Problem List Initiated/Reviewed/Updated: Yes Orders Last 24hrs: Active Orders 24 hr Category Date Time Status Patient Status [ADT] Routine ADT 08/16/20 10:05 Active NG Tube Placement [CR] Stat Exams 08/16/20 09:56 Taken Assessment/Plan Comment:: Small bowel obstruction NPO, IV fluids normal saline 125 ml/hr, NG tube for decompression, Zofran PRN, morphine PRN, General surgery consult Asymptomatic bacteriuria- urine bacteria 2+, nitrite positive. Patient states that she would prefer not to be treated with antibiotics at this time because she is not experiencing any symptoms of urinary tract infection. Patient advised to let healthcare staff know if she starts to experience symptoms such as dysuria or lower abdominal pain. Patient has multiple antibiotic allergies, will consider IV ertapenem if needed. Patient states that she has previously taken oral amoxicillin for infection in the past. Hypothyroidism- Levothyroxine Lovenox for DVT prophylaxis, Protonix, vitals Q4H
[2020-08-16] MEDS ORDERED: Ondansetron 4 MG/2 ML SDV IVPUSH PRN ×2 (11:46→13:34)
--- NOTE | 2020-08-16 11:56 | CR ---
INDICATION: Small-bowel obstruction. NG tube placement. COMPARISON: CT of the abdomen pelvis 08/15/2020. TECHNIQUE: Chest/Abdomen, 2 views. FINDINGS: Placement of an enteric tube with tip and side hole in the stomach. Mild left basilar atelectasis. No dilated bowel loops visualized in the upper abdomen. Surgical clips right upper quadrant. IMPRESSION: Enteric tube with tip and side hole in the stomach. Dictated by Dede Guan MD @ Aug 16 2020 11:53AM Signed by Dr. Dede Guan @ Aug 16 2020 11:55AM
[2020-08-16] MEDS: Sodium Chloride 0.9% 1,000 ML IV SCH ×2 (12:41→20:28)
[2020-08-16] MEDS: Pantoprazole 40 MG in Sodium Chloride 0.9% 10 ML IV SCH (14:09)
[2020-08-16] MEDS: Enoxaparin 40 MG/0.4 ML Syringe SUBCUT SCH (14:13)
[2020-08-16] MEDS: Morphine 2 MG/ML SYRINGE IVPUSH PRN ×2 (16:06→22:31)
--- NOTE | 2020-08-16 20:27 | HP ---
DATE OF : 1955 PRIMARY CARE PHYSICIAN: Tonya Rascon NP HISTORY OF PRESENT ILLNESS: The patient is a pleasant 65-year-old female. She says for the past 2 to 3 days she has had some mild abdominal tenderness. Tenderness was more in her lower abdomen and umbilicus area. She also said it was slightly diffuse, but that it did not radiate anywhere. She also has had nausea and vomiting. She came into the ER yesterday and had a CT scan done, however, for some reason they had difficulty reading this. She was passing gas so she went home. The CT scan results came back today, and she was seen to have a small bowel obstruction with some dilated small bowel up in the left upper abdomen. She was called and told to come back to the ER. NG was placed. The patient says she has had good relief of her abdominal pain with NG placement. She now says that she is feeling much better. No longer feels nauseous. The patient says her last bowel movement was about 2 days ago. The patient says she does struggle with constipation and often only goes every 2 to 3 days and sometimes she even goes 5 days and has to use stool softeners. She last passed gas yesterday afternoon. The patient reports she has a history of small bowel obstructions. She says about 19 years ago, she had multiple hospitalizations for small bowel obstructions. These were relieved with NG decompression. However, she says that she was having so many of the recurrent small bowel obstructions they went in laparoscopically to lyse her adhesions. At this time, there was an enterotomy made that was not detected. The patient says she was in ICU for about 3 to 4 weeks. After this, she went to [facility] where they removed a part of her small bowel that she said was very leathery. This was all 19 years ago. Has not really had any issues until this past weekend. Other abdominal surgeries include hysterectomy, cholecystectomy, and appendectomy. PAST MEDICAL HISTORY: 1. Significant for hypothyroidism. 2. GERD. HOME MEDICATIONS: 1. Synthroid 0.1 mg p.o. daily. 2. Dexilant 30 mg p.o. daily. ALLERGIES: 1. Aspirin. 2. Keflex. 3. Cipro. 4. Clarithromycin. 5. Motrin. 6. Naproxen. 7. Macrobid. 8. Sulfas. PAST SURGICAL HISTORY: As per HPI. FAMILY HISTORY: Mother and Father have diabetes. REVIEW OF SYSTEMS: Complete 12+ review of systems was done, was negative, except for what was in HPI. GI: The patient says she also has issues with constipation in the past. PHYSICAL EXAMINATION: GENERAL: The patient is lying comfortably in the hospital bed. She is alert and oriented, in no acute distress. VITAL SIGNS: Temperature is 98.5, pulse is 79, blood pressure is 175/77, saturating 95% on room air. HEENT: Head is normocephalic, atraumatic. NG in place. LUNGS: Clear to auscultation bilaterally. No rhonchi or wheezing heard. HEART: Regular rate and rhythm. No murmur appreciated. ABDOMEN: Soft and nondistended. Maybe some very minimal tenderness to palpation in the umbilicus and left upper quadrant. She does have well-healed incisions from her previous surgeries. EXTREMITIES: No edema. NEUROLOGICAL: Grossly no motor or neurologic deficits noted. LABORATORY DATA: White cell count is 14.41, hemoglobin is 15.4, platelet count is 338. Lactic acid 1.6. Sodium 136, potassium 3.8, chloride 98, BUN 12, creatinine 0.9, glucose is 155. IMAGING: As per HPI. I did look at the imaging, and the report. She does have some dilated bowel up in the left upper quadrant. ASSESSMENT AND PLAN: This is a pleasant 65-year-old female who has a long history of small bowel obstruction, last one being about 19 years ago that did have unfortunately a enterotomy and required a bowel resection. The patient has an NG in. She says she is feeling much better. Her abdominal pain has almost resolved. I did go over with the patient what a small bowel obstruction was. I went over that we generally try to decompress the bowel, do bowel rest, and see if it resolves on its own. The patient understands since she has had this multiple times in the past. However, if it does not resolve, she will need surgery for lysis of adhesion. I went over that this surgery might be difficult, especially considering she had an enterotomy and multiple abdominal surgeries. The patient understands. All the patient's questions were answered. Talked to the hospital team. Surgery will continue to follow. LYLY LAMAS /[id number] GHISLAINE
[2020-08-17] MEDS: Sodium Chloride 0.9% 1,000 ML IV SCH ×3 (04:33→21:12)
[2020-08-17] MEDS: Morphine 2 MG/ML SYRINGE IVPUSH PRN ×5 (05:16→23:15)
[2020-08-17 06:04] LABS: BLOOD UREA NITROGEN,BUN 15 mg/dL (7.0-18.0); CARBON DIOXIDE,CO2 24.8 mmol/L (21.0-32.0); CHLORIDE,CL 104 mmol/L (98-107); GLUCOSE RANDOM 105 mg/dL (74-106); POTASSIUM,K 3.4 mmol/L (3.5-5.1); SODIUM,NA 140 mmol/L (136-145)
[2020-08-17] MEDS: Levothyroxine 100 MCG Tab PO SCH (06:33)
[2020-08-17] MEDS: Ertapenem 1 GM in Sodium Chloride 0.9% 50 ML IV SCH (11:11)
--- NOTE | 2020-08-17 11:23 | PCM.PN ---
- General Info Date of Service: 08/17/20 Subjective Update: Patient states mild suprapubic pain, with dysuria today and would like to start treatment for UTI today. Patient denies abdominal pain, nausea, vomiting, fever, chills, chest pain, shortness of breath. Patient states that the NG tube is quite irritating at times. Patient states that she is not passing any gas but this is normal for her. Patient also states no bowel movement today. - Review of Systems General: Denies: Fever, Chills Pulmonary: Denies: Shortness of Breath, Cough Cardiovascular: Denies: Chest Pain Gastrointestinal: Denies: Abdominal Pain, Nausea, Vomiting Genitourinary: Reports: Dysuria Neurological: Denies: Confusion - Patient Data Vitals - Most Recent: Last Vital Signs Temp 99.2 F 08/17/20 04:00 Pulse 94 08/17/20 06:54 Resp 16 08/17/20 06:54 BP 154/75 H 08/17/20 06:54 Pulse Ox 94 L 08/17/20 06:54 Weight - Most Recent: 139 lb 11.2 oz I&O - Last 24 Hours: Intake & Output 08/16/20 08/17/20 08/17/20 22:59 06:59 14:59 Intake Total 441 2373 Output Total 1200 900 Balance -759 1473 Lab Results Last 24 Hours: Laboratory Results - last 24 hr 08/16/20 08/17/20 08/17/20 Range/Units 17:42 05:02 05:02 WBC 13.97 H (4.0-11.0) K/uL RBC 4.58 (4.30-5.90) M/uL Hgb 13.9 (12.0-16.0) g/dL Hct 40.8 (36.0-46.0) % MCV 89.1 (80.0-98.0) fL MCH 30.3 (27.0-32.0) pg MCHC 34.1 (31.0-37.0) g/dL RDW Std Deviation 42.6 (28.0-62.0) fl RDW Coeff of Jerrell 13 (11.0-15.0) % Plt Count 304 (150-400) K/uL MPV 12.20 H (7.40-12.00) fL Neut % (Auto) 75.5 (48.0-80.0) % Lymph % (Auto) 14.0 L (16.0-40.0) % Wilkinson % (Auto) 8.2 (0.0-15.0) % Eos % (Auto) 2.1 (0.0-7.0) % Baso % (Auto) 0.2 (0.0-1.5) % Neut # (Auto) 10.6 H (1.4-5.7) K/uL Lymph # (Auto) 2.0 (0.6-2.4) K/uL Wilkinson # (Auto) 1.1 H (0.0-0.8) K/uL Eos # (Auto) 0.3 (0.0-0.7) K/uL Baso # (Auto) 0.0 (0.0-0.1) K/uL Nucleated RBC % 0.0 /100WBC Nucleated RBCs # 0 K/uL Sodium 140 (136-145) mmol/L Potassium 3.4 L (3.5-5.1) mmol/L Chloride 104 (98-107) mmol/L Carbon Dioxide 24.8 (21.0-32.0) mmol/L BUN 15 (7.0-18.0) mg/dL Creatinine 0.7 (0.6-1.0) mg/dL Est Cr Clr Drug Dosing 75.84 mL/min Estimated GFR (MDRD) > 60.0 ml/min Glucose 105 (74-106) mg/dL POC Glucose 107 (60-110) mg/dL Calcium 8.6 (8.5-10.1) mg/dL Magnesium 1.7 L (1.8-2.4) mg/dL Med Orders - Current: Current Medications Enoxaparin Sodium (Enoxaparin 40 Mg/0.4 Ml Syringe) 40 mg SUBCUT Q24H [facility] Last Admin: 08/16/20 14:13 Dose: Not Given Documented by: Sodium Chloride (Normal Saline) 1,000 mls @ 125 mls/hr IV ASDIRECTED [facility] Last Admin: 08/17/20 04:33 Dose: 125 mls/hr Documented by: Pantoprazole Sodium 40 mg/ (Sodium Chloride) 10 mls @ 300 mls/hr IV Q24H [facility] Last Admin: 08/16/20 14:09 Dose: 300 mls/hr Documented by: Ertapenem 1 gm/ Sodium (Chloride) 50 mls @ 100 mls/hr IV Q24H [facility] Last Admin: 08/17/20 11:11 Dose: 100 mls/hr Documented by: Levothyroxine Sodium (Levothyroxine 100 Mcg Tab) 100 mcg PO ACBREAKFAST STEPHY Last Admin: 08/17/20 06:33 Dose: 100 mcg Documented by: Morphine Sulfate (Morphine 2 Mg/Ml Syringe) 2 mg IVPUSH Q4H PRN PRN Reason: Pain Last Admin: 08/17/20 09:12 Dose: 2 mg Documented by: Ondansetron HCl (Ondansetron 4 Mg/2 Ml Sdv) 4 mg IVPUSH Q6H PRN PRN Reason: Nausea/Vomiting Discontinued Medications Sodium Chloride (Normal Saline) 1,000 mls @ 999 mls/hr IV .BOLUS ONE Stop: 08/16/20 10:55 Last Admin: 08/16/20 10:00 Dose: 999 mls/hr Documented by: Midazolam HCl (Midazolam 1 Mg/Ml 2 Ml Sdv) 2 mg IVPUSH ONETIME ONE Stop: 08/16/20 10:09 Last Admin: 08/16/20 10:12 Dose: 2 mg Documented by: Morphine Sulfate (Morphine 4 Mg/Ml Syringe) 4 mg IVPUSH ONETIME ONE Stop: 08/16/20 10:34 Last Admin: 08/16/20 11:04 Dose: 4 mg Documented by: Ondansetron HCl (Ondansetron 4 Mg/2 Ml Sdv) 4 mg IVPUSH Q8H PRN PRN Reason: Nausea/Vomiting - Exam General: Alert, Oriented Lungs: Clear to Auscultation, Normal Respiratory Effort Cardiovascular: Regular Rate, Regular Rhythm GI/Abdominal Exam: Normal Bowel Sounds, Soft, Non-Tender Extremities: No Pedal Edema - Patient Data Lab Results Last 24 hrs: Laboratory Results - last 24 hr 08/16/20 08/17/20 08/17/20 Range/Units 17:42 05:02 05:02 WBC 13.97 H (4.0-11.0) K/uL RBC 4.58 (4.30-5.90) M/uL Hgb 13.9 (12.0-16.0) g/dL Hct 40.8 (36.0-46.0) % MCV 89.1 (80.0-98.0) fL MCH 30.3 (27.0-32.0) pg MCHC 34.1 (31.0-37.0) g/dL RDW Std Deviation 42.6 (28.0-62.0) fl RDW Coeff of Jerrell 13 (11.0-15.0) % Plt Count 304 (150-400) K/uL MPV 12.20 H (7.40-12.00) fL Neut % (Auto) 75.5 (48.0-80.0) % Lymph % (Auto) 14.0 L (16.0-40.0) % Wilkinson % (Auto) 8.2 (0.0-15.0) % Eos % (Auto) 2.1 (0.0-7.0) % Baso % (Auto) 0.2 (0.0-1.5) % Neut # (Auto) 10.6 H (1.4-5.7) K/uL Lymph # (Auto) 2.0 (0.6-2.4) K/uL Wilkinson # (Auto) 1.1 H (0.0-0.8) K/uL Eos # (Auto) 0.3 (0.0-0.7) K/uL Baso # (Auto) 0.0 (0.0-0.1) K/uL Nucleated RBC % 0.0 /100WBC Nucleated RBCs # 0 K/uL Sodium 140 (136-145) mmol/L Potassium 3.4 L (3.5-5.1) mmol/L Chloride 104 (98-107) mmol/L Carbon Dioxide 24.8 (21.0-32.0) mmol/L BUN 15 (7.0-18.0) mg/dL Creatinine 0.7 (0.6-1.0) mg/dL Est Cr Clr Drug Dosing 75.84 mL/min Estimated GFR (MDRD) > 60.0 ml/min Glucose 105 (74-106) mg/dL POC Glucose 107 (60-110) mg/dL Calcium 8.6 (8.5-10.1) mg/dL Magnesium 1.7 L (1.8-2.4) mg/dL Result Diagrams: 08/17/20 05:02 08/17/20 05:02 Sepsis Event Note - Evaluation Sepsis Screening Result: No Definite Risk - Focused Exam Vital Signs: Vital Signs Temp Pulse Resp BP Pulse Ox 08/17/20 06:54 94 16 154/75 H 94 L 08/17/20 04:00 99.2 F 88 16 162/78 H 96 08/17/20 00:00 97.8 F 88 14 171/78 H 95 - Problem List & Annotations (1) Hypothyroidism SNOMED Code(s): 68771199 Code(s): E03.9 - HYPOTHYROIDISM, UNSPECIFIED Status: Acute Current Visit: Yes (2) Abdominal pain SNOMED Code(s): 14941153 Code(s): R10.9 - UNSPECIFIED ABDOMINAL PAIN Status: Acute Current Visit: No (3) SBO (small bowel obstruction) SNOMED Code(s): 226385747 Code(s): K56.609 - UNSP INTESTNL OBST, UNSP TO PARTIAL VERSUS COMPLETE OBST Status: Acute Current Visit: Yes (4) GERD (gastroesophageal reflux disease) SNOMED Code(s): 468037942 Code(s): K21.9 - GASTRO-ESOPHAGEAL REFLUX DISEASE WITHOUT ESOPHAGITIS Status: Acute Current Visit: Yes (5) Asymptomatic bacteriuria SNOMED Code(s): 546207645 Code(s): R82.71 - BACTERIURIA Status: Acute Current Visit: Yes - Problem List Review Problem List Initiated/Reviewed/Updated: Yes - My Orders Last 24 Hours: My Active Orders 08/16/20 11:47 Oxygen Therapy [RC] PRN VTE/DVT Education [RC] PER UNIT ROUTINE Vital Signs [RC] Q4H 08/16/20 12:00 Sodium Chloride 0.9% [Normal Saline] 1,000 ml IV ASDIRECTED 08/16/20 13:32 Morphine 2 mg IVPUSH Q4H PRN 08/16/20 13:34 Ondansetron [Zofran] 4 mg IVPUSH Q6H PRN 08/16/20 14:00 Enoxaparin [Lovenox] 40 mg SUBCUT Q24H Pantoprazole [ProTONIX IV] 40 mg Sodium Chloride 0.9% [Normal Saline] 10 ml IV Q24H 08/16/20 Dinner NPO [Nothing Per Oral Diet] [DIET] 08/16/20 17:49 Code Status [Resuscitation Status] Routine 08/17/20 07:30 Levothyroxine [Synthroid] 100 mcg PO ACBREAKFAST 08/17/20 10:14 Small Bowel w Serial Film [CR] Routine 08/17/20 10:30 Ertapenem [INVanz] 1 gm Sodium Chloride 0.9% [Normal Saline] 50 ml IV Q24H 08/17/20 10:31 Communication Order [RC] ROUTINE 08/17/20 11:11 CULTURE URINE [RM] Routine - Plan Plan:: Small bowel obstruction NPO, IV fluids normal saline 125 ml/hr, NG tube for decompression, Zofran PRN, morphine PRN, patient to have small bowel follow- through studies tomorrow. UTI- urine bacteria 2+, nitrite positive. Patient today is complaining of dysuria and mild suprapubic pain. Patient would like to be started on antibio tics. We will begin IV ertapenem 1 g every 24. Urine culture ordered to be collected prior to antibiotic treatment. Hypothyroidism- Levothyroxine Lovenox for DVT prophylaxis, Protonix, vitals Q4H
--- NOTE | 2020-08-17 12:28 | PN ---
SUBJECTIVE: The patient is resting comfortably in her room. She says she is feeling again much better. Her main complaint is just NG and causing some discomfort in her nose and also some back pain from lying in the bed so much. She says her abdominal pain has almost gone, just some lower abdominal pain currently. The patient has been up and ambulating. The patient says she is starting to feel hungry again. The patient says she has not passed any flatus or had a bowel movement, although the patient says she often does not pass a lot of flatus in general. OBJECTIVE: VITAL SIGNS: Temperature is 99.2, pulse is 94, blood pressure is 154/75, and saturating 94% on room air. ABDOMEN: Soft and nondistended. Does have some minimal tenderness, more in the left lower abdomen. No rebound. No peritoneal signs. NG output only 300 mL over the morale officer. ASSESSMENT AND PLAN: This is a pleasant 65-year-old female with a small-bowel obstruction. Underwent NG decompression. Abdominal pain has dissipated. White cell count is slightly down to 13.97. No flatus yet. I did go over with the patient we will continue to monitor NG output, potentially might be able to do a small-bowel follow- through tomorrow since this is when Radiology is available. Did discuss this with the Medicine team. We will get NG out sooner if she starts passing flatus. All the patient's questions were answered. Again, discussed with the Medicine team. LYLY / ADAMS /[id number] GHISLAINE
[2020-08-17] MEDS ORDERED: Potassium Chloride Riders 20 MEQ in Premix Bag 1 BAG IV ONE (14:27)
[2020-08-17] MEDS: Pantoprazole 40 MG in Sodium Chloride 0.9% 10 ML IV SCH (14:27)
[2020-08-17] MEDS ORDERED: Magnesium Sulfate/Water 2 GM/50 ML BAG IV ONE (14:27)
[2020-08-17] MEDS: Enoxaparin 40 MG/0.4 ML Syringe SUBCUT SCH (14:35)
--- NOTE | 2020-08-17 15:48 | PN ---
SUBJECTIVE: The patient was checked on this afternoon. The patient said she is feeling even better. She said she almost has no abdominal pain. She has not been passing gas, but she feels like it was like a rumble and that she will soon pass some flatus. I did discuss with the Medicine team. They are arranging for small bowel followthrough tomorrow. I answered the patient's questions. LYLY / ADAMS /[id number]
[2020-08-18] MEDS: Morphine 2 MG/ML SYRINGE IVPUSH PRN ×4 (03:42→18:17)
[2020-08-18] MEDS: Sodium Chloride 0.9% 1,000 ML IV SCH ×2 (03:42→16:30)
[2020-08-18 06:06] LABS: BLOOD UREA NITROGEN,BUN 20 mg/dL (7.0-18.0); CARBON DIOXIDE,CO2 23.5 mmol/L (21.0-32.0); CHLORIDE,CL 106 mmol/L (98-107); GLUCOSE RANDOM 87 mg/dL (74-106); POTASSIUM,K 3.9 mmol/L (3.5-5.1); SODIUM,NA 141 mmol/L (136-145)
[2020-08-18] MEDS: Levothyroxine 100 MCG Tab PO SCH (06:36)
--- NOTE | 2020-08-18 11:42 | PN ---
SUBJECTIVE: The patient is resting comfortably in her hospital room. She is alert. Patient again is just not really having any abdominal pain. She is occasionally getting more gas pains in her lower abdomen. She denies passing any flatus yet. Her main complaint is more of just having the NG and causing discomfort. She only had 450 mL out over the last 24 hours. The patient was started on some antibiotics yesterday because of her UTI. OBJECTIVE: GENERAL: The patient is resting comfortably. She is alert and oriented, no acute distress. VITAL SIGNS: Temperature is 98.1, pulse is 89, blood pressure is 149/82, saturating 98% on room air. ABDOMEN: Soft and nondistended. Has very minimal tenderness to palpation, again more on the left lower abdomen. No rebound. No peritoneal signs. ASSESSMENT AND PLAN: This is a pleasant 65-year-old female with small bowel obstruction. This potentially might be resolving. She had only 450 mL out of the NG over the last 24 hours. However, she has not passed any flatus yet. Did go over with the patient that she will be getting her small-bowel follow-through today, went over that. If she shows continued obstruction, she would likely need surgery we have talked about. If no obstruction is seen, we can probably remove the NG and start her on liquid diet. The patient now mentions that if she does need a surgery, she would prefer to be at tertiary center. She would like to potentially go back to [place] where her last surgery was done. But patient is hoping that she will not need anything because she is feeling better. The patient's questions were answered. We talked to the Medicine team. I did go over that. If films show continued obstruction, the patient would like to be transferred because her last bowel obstruction was done at [place]. She got an enterotomy and she was up in the ICU for several weeks. All the patient's questions were answered. LYLY LAMAS /[id number]
[2020-08-18] MEDS: Ertapenem 1 GM in Sodium Chloride 0.9% 50 ML IV SCH (13:17)
--- NOTE | 2020-08-18 14:13 | CR ---
INDICATION: Small bowel obstruction. TECHNIQUE: Economic Consultant radiographic images of the abdomen and pelvis were obtained with overhead frontal projections. The nasogastric tube was advanced under intermittent fluoroscopy so that the side port was beyond the gastroesophageal junction. A total of 180 mL of Gastrografin was administered through the pre-existing nasogastric tube under fluoroscopic visualization. Overhead frontal abdominal radiographs were obtained at 30, 45, 60, and 90 minutes post contrast administration. Additionally, spot compression fluoroscopic images were obtained at approximately 70 minutes with use of a balloon compression paddle. Total of 11 images stored with 2.4 minutes of fluoroscopy time. COMPARISON: CT 08/15/2020. FINDINGS: Economic Consultant images demonstrate the nasogastric tube tip overlying the expected location of the gastroesophageal junction, with side port in the distal esophagus. Therefore, the pre-existing nasogastric tube was advanced into the stomach with side port below the gastroesophageal junction, under fluoroscopic visualization. On serial post-contrast imaging, there is progressive opacification of the proximal small bowel revealing persistent dilatation of the duodenum as well as a C-shaped proximal jejunal loop, measuring nearly 6 cm in maximal diameter, which tapered caliber change distally favored to represent a transition point. No small-bowel contrast opacification is visualized distal to the transition point through 90 minutes of imaging. IMPRESSION: 1. Persistent high-grade small bowel obstruction with proximal jejunal transition point in the left mid abdomen. Surgical consultation recommended. 2. No contrast opacification identified beyond the transition point through 90 minutes of imaging. Recommend serial short interval imaging follow-up with portable abdominal radiographs to evaluate for progressive contrast transit. Nasogastric suction should be avoided during this period, if clinically feasible, to avoid extracting the enteric contrast. Dictated by Anibal Bravo MD @ 08/18/2020 2:10:50 PM Dictated by: Anibal Bravo MD @ 08/18/2020 14:10:57 (Electronically Signed)
[2020-08-18] MEDS: Enoxaparin 40 MG/0.4 ML Syringe SUBCUT SCH (15:07)
[2020-08-18] MEDS: Pantoprazole 40 MG in Sodium Chloride 0.9% 10 ML IV SCH (15:07)
--- NOTE | 2020-08-18 16:37 | CR ---
Indication: Bowel obstruction, small-bowel follow-through follow-up Technique: Portable supine AP view of the abdomen Comparison: Upper GI with small bowel follow-through 08/18/2020 Findings/Impression: 1. There is persistent distention of the stomach, duodenum, and proximal jejunum with contrast material. Jejunal caliber is minimally improved, now measuring up to 4.6 cm, compared to 5.0 cm previously. 2. Again seen is abrupt caliber transition in the left upper abdomen with no appreciable opacification or distension of the small bowel distal to this point, consistent with persistent obstruction. 3. There is slight hyperdensity of the fecal contents within the ascending colon, slightly more conspicuous than on prior examination. This may be due to differences in technique, or due to passage of a very small amount of contrast material. Dictated by Michael Carter MD @ Aug 18 2020 4:26PM Signed by Dr. Michael Carter @ Aug 18 2020 4:36PM
--- NOTE | 2020-08-18 17:55 | PCM.DCSUM1 ---
Discharge Summary - Hospital Course Free Text/Narrative:: 65-year-old female with past medical history of hypothyroidism, GERD, prior SBO episodes admitted for small bowel obstruction. Patient presents to the ED with nausea, vomiting, abdominal pain. Patient states 2 days ago on Sunday evening she ate steven chips and a few hours later began to have symptoms. Per documentation and patient history, patient reports history of small bowel obstructions roughly 19 years ago at which time she required multiple hosp italizations for treatment which included NG decompression, NPO. Patient states that due to recurrent small bowel obstructions laparoscopic surgery was performed at which time been an enterotomy was made that was not detected which caused the patient to be transported to [facility] for 3 to 4-week stay in the ICU. At that point patient had small bowel resected. Other abdominal surgeries include hysterectomy, cholecystectomy and appendectomy. Patient has not had any small bowel obstruction incidences since. On admission patient denies chest pain, shortness of breath, fever, chills, nausea, vomiting, abdominal pain. On admission UA showed nitrite +2 + bacteria, but patient denies any symptoms of dysuria, hematuria, lower abdominal pain, flank pain. Patient was made aware of possible infection, patient states that she would like to wait before receiving antibiotic treatment for the infection as she states that she is not having symptoms. WBC 14.4, CT abdomen impression- Small bowel obstruction with dilated small bowel loops in the left upper quadrant. Patient admitted to the floor, NG tube placed, made n.p.o., IV normal saline started. Patient was started on Ertapenem 1g Q24 for UTI the following day as patient stated dysuria and abdominal/suprapubic pain. Resume levothyroxine for hypothyroidism, Lovenox for DVT prophylaxis, Protonix, morphine 2 mg every 4 hours for abdominal pain. Patient CT abdomen findings from -, impression small bowel obstruction dilated small bowel loops in the left upper quadrant. Small bowel follow-through series -, persistent high-grade small bowel obstruction, no contrast identified been a transition point through 90 minutes imaging. Abdominal x-ray repeated after 4 hours which showed distention of stomach duodenum and proximal jejunum with contrast material, consistent with persistent obstruction. Due to persistent small bowel obstruction patient was transferred via ambulance to [facility] for surgical care. Dr Anibal Badillo, General surgery was consulted prior to transfer. Accepting physician Dr. Amor Griffiths MD, general surgery. Patient was accepting of the transfer and understands her current medical condition. Upon discharge patient denied fever, chills, nausea, vomiting. Patient had some mild abdominal pain. Vital signs at discharge 97.3 F, pulse rate 90, blood pressure 127/63, respiratory rate 16, 90% O2 saturation on room air. - Discharge Data Discharge Date: 08/18/20 Discharge Disposition: DC/Tfer to Acute Hospital 02 Condition: Stable - Referral to Home Health Primary Care Physician: Cary Rascon NP - Discharge Diagnosis/Problem(s) (1) Hypothyroidism SNOMED Code(s): 59975592 ICD Code: E03.9 - HYPOTHYROIDISM, UNSPECIFIED Status: Acute Current Visit: Yes (2) Abdominal pain SNOMED Code(s): 45274899 ICD Code: R10.9 - UNSPECIFIED ABDOMINAL PAIN Status: Acute Current Visit: No (3) SBO (small bowel obstruction) SNOMED Code(s): 534433492 ICD Code: K56.609 - UNSP INTESTNL OBST, UNSP TO PARTIAL VERSUS COMPLETE OBST Status: Acute Current Visit: Yes (4) GERD (gastroesophageal reflux disease) SNOMED Code(s): 722459843 ICD Code: K21.9 - GASTRO-ESOPHAGEAL REFLUX DISEASE WITHOUT ESOPHAGITIS Status: Acute Current Visit: Yes (5) Asymptomatic bacteriuria SNOMED Code(s): 201040703 ICD Code: R82.71 - BACTERIURIA Status: Acute Current Visit: Yes - Discharge Plan Home Medications: Home Meds Levothyroxine [Synthroid] 0.1 mg PO ACBREAKFAST 05/12/17 [History] Dexlansoprazole [Dexilant] 30 mg PO ACBREAKFAST 08/15/20 [History] Patient Handouts: Bowel Obstruction, [id number] Forms: ED Department Discharge Referrals: Shonna Grimm PA [[employer]] - 08/31/20 1:20 pm - Discharge Summary/Plan Comment DC Time >30 min.: Yes - General Info Date of Service: 08/18/20 Subjective Update: Patient denies fever, chills, nausea, vomiting. Patient states slight abdominal pain. - Review of Systems General: Denies: Fever, Chills Pulmonary: Denies: Shortness of Breath, Cough Cardiovascular: Denies: Chest Pain Gastrointestinal: Reports: Abdominal Pain (mild). Denies: Nausea, Vomiting Genitourinary: Reports: Dysuria (mild) Neurological: Denies: Confusion, Dizziness Psychiatric: Denies: Confusion - Patient Data Vitals - Most Recent: Last Vital Signs Temp 97.3 F 08/18/20 16:26 Pulse 90 08/18/20 16:26 Resp 16 08/18/20 16:26 BP 127/63 08/18/20 16:26 Pulse Ox 98 08/18/20 16:26 Weight - Most Recent: 139 lb 11.2 oz I&O - Last 24 hours: Intake & Output 08/18/20 08/18/20 08/18/20 06:59 14:59 22:59 Intake Total 2862 1279 Output Total 450 2700 Balance 2412 -1421 Lab Results - Last 24 hrs: Laboratory Results - last 24 hr 08/17/20 08/18/20 08/18/20 Range/Units 19:03 05:10 05:10 WBC 10.49 (4.0-11.0) K/uL RBC 4.24 L (4.30-5.90) M/uL Hgb 12.7 (12.0-16.0) g/dL Hct 38.0 (36.0-46.0) % MCV 89.6 (80.0-98.0) fL MCH 30.0 (27.0-32.0) pg MCHC 33.4 (31.0-37.0) g/dL RDW Std Deviation 42.8 (28.0-62.0) fl RDW Coeff of Jerrell 13 (11.0-15.0) % Plt Count 284 (150-400) K/uL MPV 11.80 (7.40-12.00) fL Neut % (Auto) 64.4 (48.0-80.0) % Lymph % (Auto) 21.2 (16.0-40.0) % Gem % (Auto) 10.9 (0.0-15.0) % Eos % (Auto) 3.2 (0.0-7.0) % Baso % (Auto) 0.3 (0.0-1.5) % Neut # (Auto) 6.8 H (1.4-5.7) K/uL Lymph # (Auto) 2.2 (0.6-2.4) K/uL Gem # (Auto) 1.1 H (0.0-0.8) K/uL Eos # (Auto) 0.3 (0.0-0.7) K/uL Baso # (Auto) 0.0 (0.0-0.1) K/uL Nucleated RBC % 0.0 /100WBC Nucleated RBCs # 0 K/uL Sodium 141 (136-145) mmol/L Potassium 3.9 (3.5-5.1) mmol/L Chloride 106 (98-107) mmol/L Carbon Dioxide 23.5 (21.0-32.0) mmol/L BUN 20 H (7.0-18.0) mg/dL Creatinine 0.8 (0.6-1.0) mg/dL Est Cr Clr Drug Dosing 66.36 mL/min Estimated GFR (MDRD) > 60.0 ml/min Glucose 87 (74-106) mg/dL POC Glucose 94 (60-110) mg/dL Calcium 8.3 L (8.5-10.1) mg/dL Magnesium 2.1 (1.8-2.4) mg/dL Total Bilirubin 0.5 (0.2-1.0) mg/dL AST 15 (15-37) IU/L ALT 19 (14-63) IU/L Alkaline Phosphatase 73 (46-116) U/L Total Protein 6.1 L (6.4-8.2) g/dL Albumin 3.0 L (3.4-5.0) g/dL Globulin 3.1 (2.6-4.0) g/dL Albumin/Globulin Ratio 1.0 (0.9-1.6) Med Orders - Current: Current Medications Enoxaparin Sodium (Enoxaparin 40 Mg/0.4 Ml Syringe) 40 mg SUBCUT Q24H [facility] Last Admin: 08/18/20 15:07 Dose: Not Given Documented by: Sodium Chloride (Normal Saline) 1,000 mls @ 125 mls/hr IV ASDIRECTED [facility] Last Admin: 08/18/20 16:30 Dose: 125 mls/hr Documented by: Pantoprazole Sodium 40 mg/ (Sodium Chloride) 10 mls @ 300 mls/hr IV Q24H [facility] Last Admin: 08/18/20 15:07 Dose: 300 mls/hr Documented by: Ertapenem 1 gm/ Sodium (Chloride) 50 mls @ 100 mls/hr IV Q24H [facility] Last Admin: 08/18/20 13:17 Dose: 100 mls/hr Documented by: Levothyroxine Sodium (Levothyroxine 100 Mcg Tab) 100 mcg PO ACBREAKFAST STEPHY Last Admin: 08/18/20 06:36 Dose: 100 mcg Documented by: Morphine Sulfate (Morphine 2 Mg/Ml Syringe) 2 mg IVPUSH Q4H PRN PRN Reason: Pain Last Admin: 08/18/20 13:17 Dose: 2 mg Documented by: Ondansetron HCl (Ondansetron 4 Mg/2 Ml Sdv) 4 mg IVPUSH Q6H PRN PRN Reason: Nausea/Vomiting Last Admin: 08/18/20 15:07 Dose: 4 mg Documented by: Discontinued Medications Sodium Chloride (Normal Saline) 1,000 mls @ 999 mls/hr IV .BOLUS ONE Stop: 08/16/20 10:55 Last Admin: 08/16/20 10:00 Dose: 999 mls/hr Documented by: Potassium Chloride 20 meq/ (Premix) 50 mls @ 25 mls/hr IV ONETIME ONE Stop: 08/17/20 16:26 Last Admin: 08/17/20 15:23 Dose: 25 mls/hr Documented by: Magnesium Sulfate (Magnesium Sulfate In Water 2 Gm/50 Ml) 2 gm in 50 mls @ 50 mls/hr IV ONETIME ONE Stop: 08/17/20 15:26 Last Admin: 08/17/20 14:38 Dose: 50 mls/hr Documented by: Midazolam HCl (Midazolam 1 Mg/Ml 2 Ml Sdv) 2 mg IVPUSH ONETIME ONE Stop: 08/16/20 10:09 Last Admin: 08/16/20 10:12 Dose: 2 mg Documented by: Morphine Sulfate (Morphine 4 Mg/Ml Syringe) 4 mg IVPUSH ONETIME ONE Stop: 08/16/20 10:34 Last Admin: 08/16/20 11:04 Dose: 4 mg Documented by: Ondansetron HCl (Ondansetron 4 Mg/2 Ml Sdv) 4 mg IVPUSH Q8H PRN PRN Reason: Nausea/Vomiting - Exam General: Reports: Alert, Oriented Lungs: Reports: Clear to Auscultation, Normal Respiratory Effort Cardiovascular: Reports: Regular Rate, Regular Rhythm GI/Abdominal Exam: Soft, Non-Tender Psy/Mental Status: Reports: Alert
== END 2020-08-18 18:45 | DRG 389 ==
LOC: MW.ED 09:12 → MW.MS 10:05
PROVIDERS: ADMIT Internal Medicine; ATTEND Internal Medicine
PROC: 0D9670Z Drainage of Stomach with Drainage Device, Via Natural or Artificial Opening (ICD-10-PCS; principal; 2020-08-16)
DX: K56.609 Unspecified intestinal obstruction, unspecified as to partial versus complete obstruction (principal); N39.0 Urinary tract infection, site not specified; K21.9 Gastro-esophageal reflux disease without esophagitis; E03.9 Hypothyroidism, unspecified; M19.90 Unspecified osteoarthritis, unspecified site; Z20.822 Contact with and (suspected) exposure to COVID-19; Z79.899 Other long term (current) drug therapy; Z88.1 Allergy status to other antibiotic agents; Z88.2 Allergy status to sulfonamides; Z88.6 Allergy status to analgesic agent; Z88.8 Allergy status to other drugs, medicaments and biological substances; Z79.890 Hormone replacement therapy; Z90.49 Acquired absence of other specified parts of digestive tract; Z90.710 Acquired absence of both cervix and uterus
CPT/HCPCS: 0240U; 36415; 43752; 74018; 74250; 80048; 80053; 82550; 82962; 83605; 83690; 83735; 85025; 85610; 85730; 87086; 87088; 87186; 96374; 97802; 99284; 99283; A9270-GY; C9113; J1335; J2250; J2270; J2405; J3475; J3480; J7030

== ENCOUNTER 2023-03-12 19:07 | Emergency (ER) | payer MEDICARE, OTHER ==
[2023-03-12 20:15] LABS: BASOPHILS ABSOLUTE AUTO 0.04 K/uL (0.00-0.20); BASOPHILS PERCENT AUTO 0.3 % (0.0-1.0); EOSINOPHILS ABSOLUTE AUTO 0.26 K/uL (0.00-0.45); HEMATOCRIT 39.4 % (37.0-47.0); HEMOGLOBIN 14.2 g/dL (12.0-16.0); IMMATURE GRAN ABSOLUTE AUTO 0.04 K/uL (0.00-0.05); IMMATURE GRAN PERCENT AUTO 0.3 % (0.0-0.4); LYMPHOCYTES ABSOLUTE AUTO 2.88 K/uL (1.00-4.80); LYMPHOCYTES PERCENT AUTO 21.8 % (24.0-44.0); MEAN CORPUSCULAR HEMOGLOBIN 31.2 pg (28.0-32.0); MEAN CORPUSCULAR VOLUME 86.6 fL (83.0-99.0); MEAN PLATELET VOLUME 10.2 fL (9.4-12.3); MONOCYTES ABSOLUTE AUTO 0.92 K/uL (0.00-0.80); MONOCYTES PERCENT AUTO 6.9 % (0.0-8.0); NEUTROPHILS PERCENT AUTO 68.7 % (41.0-71.0); PLATELET COUNT,PLT 315 K/uL (150-400); RED BLOOD CELL COUNT 4.55 M/uL (4.10-5.30); WHITE BLOOD CELL COUNT,WBC 13.24 K/uL (3.9-11.3)
[2023-03-12 20:49] LABS: A/G RATIO 1.2 (0.9-1.6); ALBUMIN 4.5 g/dL (3.4-5.0); BILIRUBIN TOTAL 0.7 mg/dL (0.2-1.0); CALCIUM 9.8 mg/dL (8.5-10.1); CARBON DIOXIDE,CO2 26.3 mmol/L (21.0-32.0); CREATININE 0.9 mg/dL (0.6-1.0); EST CRCL DRUG DOSING (CG) 57.37 mL/min; POTASSIUM,K 4.3 mmol/L (3.5-5.1); PROTEIN TOTAL,TP 8.3 g/dL (6.4-8.2)
[2023-03-12 20:51] LABS: LACTIC ACID 1.4 mmol/L (0.4-2.0)
[2023-03-12] MEDS ORDERED: Iopamidol 755 MG/ML 500 ML Multipack Bottle IVPUSH ONE (21:02)
== END 2023-03-12 23:04 | disposition home or self-care (01) ==
LOC: MW.ED 19:07
DX: K59.00 Constipation, unspecified (principal); E03.9 Hypothyroidism, unspecified; Z79.899 Other long term (current) drug therapy; Z88.1 Allergy status to other antibiotic agents; Z88.2 Allergy status to sulfonamides; Z88.6 Allergy status to analgesic agent; Z88.8 Allergy status to other drugs, medicaments and biological substances
CPT/HCPCS: 36415; 74177; 80053; 83605; 83690; 83735; 85025; 99284; Q9967